=== PATIENT | female | born 1995 | race Caucasian/White ===

== ENCOUNTER 2019-06-27 19:06 | Inpatient (IN) | payer BC ==
[2019-06-27] MEDS ORDERED: Misoprostol 200 MCG TAB PR PRN (19:28)
[2019-06-27] MEDS ORDERED: Promethazine HCl 25 MG/ML VIAL IM PRN (19:28)
[2019-06-27] MEDS ORDERED: Ibuprofen 800 MG TAB PO PRN (19:28)
[2019-06-27] MEDS ORDERED: Lidocaine 1% (PF) 30 ML VIAL SC PRN (19:28)
[2019-06-27] MEDS ORDERED: NS / Oxytocin 40 units/1000ml 1,000 ML IV PRN (19:28)
[2019-06-27] MEDS ORDERED: Ondansetron PF 4 MG/2 ML Vial IVP PRN (19:28)
[2019-06-27] MEDS ORDERED: Carboprost 250 MCG/ML AMP IM PRN (19:28)
[2019-06-27] MEDS ORDERED: Diphenoxylate HCl/Atropine Tablet PO PRN ×2 (19:28)
[2019-06-27] MEDS ORDERED: HYDROcodone/Acetaminophen 5/325 mg Tablet PO PRN (19:28)
[2019-06-27] MEDS ORDERED: hydrALAZINE 20 MG/ML VIAL SLOW IVP PRN (19:28)
[2019-06-27] MEDS ORDERED: Zolpidem Tartrate 5 MG TAB PO PRN (19:28)
[2019-06-27 19:46] VITALS: BMI 35.9
[2019-06-27] MEDS: Lactated Ringer's 1,000 ML IV SCH (20:00)
[2019-06-27] MEDS ORDERED: Penicillin G Potassium 5 MILL.UNITS in Sodium Chloride 0.9% 100 ML IVPB SCH (20:00)
[2019-06-27 20:21] LABS: Hemoglobin 10.5 g/dL (12.0-16.0); Mean Corpuscular Hemoglobin 28.1 pg (27.0-31.0); Mean Platelet Volume 8.4 fL (7.4-10.4); Platelet Count 206 thou/uL (130-400); RBC Distribution Width 13.4 % (11.5-14.5); Red Blood Cell (RBC) Count 3.72 mill/uL (4.20-5.40); White Blood Cell (WBC) Count 16.1 thou/uL (4.8-10.8)
[2019-06-27] MEDS: Misoprostol 100 MCG TAB VAG SCH (20:21)
[2019-06-27 20:34] LABS: ALT (SGPT) 12 U/L (8-55); AST (SGOT) 14 U/L (5-34); Albumin 3.4 g/dL (3.5-5.0); Alkaline Phosphatase 152 U/L (40-110); Anion Gap 14 mmol/L (10-20); BUN (Urea Nitrogen) 13 mg/dL (7.0-18.7); Bilirubin, Total 0.2 mg/dL (0.2-1.2); Calc. Creatinine Clearance 177 mL/min (70-130); Calcium 8.9 mg/dL (7.8-10.44); Carbon Dioxide 22 mmol/L (22-29); Chloride 105 mmol/L (98-107); Estimated GFR-MDRD Greater than 90; Globulin 2.8 g/dL (2.4-3.5); Glucose 84 mg/dL (70-105); Protein, Total 6.2 g/dL (6.0-8.3); Sodium 137 mmol/L (136-145)
[2019-06-27 20:59] LABS: Syphilis Antibody Nonreactive (Nonreactive); Syphilis Antibody Index 0.03 S/CO (<1.00 Non-Reactive)
[2019-06-27 21:56] LABS: HBSAg Index 0.15 S/CO (0-0.99); Hep B Surf Ag Non-Reactive S/CO (NonReactive)
[2019-06-28] MEDS: Lactated Ringer's 1,000 ML IV SCH ×2 (02:00→09:16)
[2019-06-28] MEDS: NS w/ Oxytocin 10 units 500 ML IV SCH ×2 (02:10→04:00)
[2019-06-28] MEDS: Penicillin G 2.5 MILL.units 2.5 MILL.UNITS in Premix Bag 1 BAG IVPB SCH ×4 (02:10→11:51)
[2019-06-28] MEDS: Misoprostol 100 MCG TAB VAG SCH ×3 (02:10→18:09)
[2019-06-28] MEDS ORDERED: Butorphanol Tartrate 1 MG/ML VIAL ONE ×2 (08:48→08:55)
[2019-06-28] MEDS ORDERED: Butorphanol Tartrate 1 MG/ML VIAL SLOW IVP PRN (08:58)
[2019-06-28] MEDS ORDERED: Fentanyl 4 mcg/Bup 0.1% Cadd 100 ML ONE (10:16)
[2019-06-28] MEDS ORDERED: Acetaminophen 325 MG TAB PO PRN (10:52)
[2019-06-28] MEDS ORDERED: EPHEDRINE 25 MG/5 ML SYRINGE SLOW IVP PRN (10:52)
[2019-06-28] MEDS ORDERED: Promethazine HCl 25 MG/ML VIAL IM PRN (10:52)
[2019-06-28] MEDS ORDERED: Naloxone HCl 0.4 mg/ml Vial IVP PRN ×2 (10:52)
[2019-06-28] MEDS ORDERED: diphenhydrAMINE 50 MG/ML VIAL IVP PRN (10:52)
[2019-06-28] MEDS ORDERED: Ondansetron PF 4 MG/2 ML Vial IVP PRN (10:52)
[2019-06-28] MEDS ORDERED: Lactated Ringer's 500 ML IV PRN (10:52)
[2019-06-28] MEDS ORDERED: Fentanyl 4 mcg/Bupivacaine 0.1% Cassette 100 ML EPIDURAL SCH (11:00)
[2019-06-28] MEDS ORDERED: Communication Order-Pharmacy FS SCH (11:00)
[2019-06-28] MEDS: NS / Oxytocin 40 units/1000ml 1,000 ML IV SCH ×2 (13:45→15:47)
--- NOTE | 2019-06-28 14:03 | PDOC.OPDEL ---
OB Operative/Delivery Note Delivery Dr/Surgeon: Beena Pre-Delivery Diagnosis: medically indicated induction Procedure/Post Delivery Dx: spontaneous vaginal delivery Weeks gestation: 38 Anesthesia: epidural - Findings A Sex: female - 1 min: 8 - 5 min: 8 - Additional Findings/Plan Placenta delivered: spontaneous Repaired Obstetrical Laceration: 2nd degree (Baby had tight double nuchal cord. clamped and cut /reduced to deliver head.) Estimated blood loss: 250ml qbl Post delivery plan: routine recovery
[2019-06-28] MEDS ORDERED: Adacel (T-DAP) 0.5 ML SYRINGE IM ONE (14:04)
[2019-06-28] MEDS ORDERED: Benzocaine-Menthol 82.5 ML CAN TOP PRN (14:04)
[2019-06-28] MEDS ORDERED: Milk Of Magnesia 30 ML UDCUP PO PRN (14:04)
[2019-06-28] MEDS ORDERED: hydrALAZINE 20 MG/ML VIAL SLOW IVP PRN (14:04)
[2019-06-28] MEDS ORDERED: Preparation H Ointment 28 GM TUBE PR PRN (14:04)
[2019-06-28] MEDS ORDERED: Bisacodyl 10 MG SUPP PR PRN (14:04)
[2019-06-28] MEDS ORDERED: Ibuprofen 800 MG TAB PO SCH (16:00)
[2019-06-28] MEDS: Ferrous Sulfate 325 MG TAB PO SCH (18:09)
[2019-06-28] MEDS ORDERED: traMADol HCl 50 MG TAB PO PRN (18:19)
[2019-06-28] MEDS: Docusate Calcium (SURFAK) 240 MG CAP PO SCH (21:31)
[2019-06-28] MEDS: Ibuprofen 800 MG TAB PO SCH (21:31)
[2019-06-29] MEDS: Ibuprofen 800 MG TAB PO SCH ×2 (04:41→14:09)
--- NOTE | 2019-06-29 07:46 | PDOC.PP ---
Post Progress Note Post Day #: 1 Subjective: Working on breast feeding. Vital Signs (12 hours) Temp Pulse Resp BP 06/29/19 04:40 97.7 F 74 18 104/61 06/28/19 23:45 98.3 F 75 18 113/55 L Weight Weight 203 lb Result Diagrams: 06/27/19 20:08 06/27/19 20:09 Additional Labs: Post Labs Blood Type O POSITIVE 06/27/19 21:46 Hep Bs Antigen Non-Reactive S/CO (NonReactive) 06/27/19 20:08 - Assessment/Plan PPD#1. . Blood pressures normalized. Plan for d/c in AM.
[2019-06-29] MEDS: Ferrous Sulfate 325 MG TAB PO SCH ×2 (08:39→16:36)
[2019-06-29] MEDS: Docusate Calcium (SURFAK) 240 MG CAP PO SCH (08:39)
[2019-06-29 16:05] VITALS: BP 118/58; TEMP 98.8
== END 2019-06-29 18:18 | disposition home or self-care (01) | DRG 807 ==
LOC: L&D/OP 19:06 → L&D 19:07 → 3SW 06-28 17:36
PROVIDERS: ADMIT Obstetrics & Gynecology; ATTEND Obstetrics & Gynecology
PROC: 10907ZC Drainage of Amniotic Fluid, Therapeutic from Products of Conception, Via Natural or Artificial Opening (ICD-10-PCS; 2019-06-27)
PROC: 3E033VJ Introduction of Other Hormone into Peripheral Vein, Percutaneous Approach (ICD-10-PCS; 2019-06-27)
PROC: 3E0P7VZ Introduction of Hormone into Female Reproductive, Via Natural or Artificial Opening (ICD-10-PCS; 2019-06-27)
PROC: 10E0XZZ Delivery of Products of Conception, External Approach (ICD-10-PCS; principal; 2019-06-28)
PROC: 0KQM0ZZ Repair Perineum Muscle, Open Approach (ICD-10-PCS; 2019-06-28)
DX: O99.824 Streptococcus B carrier state complicating childbirth (principal); Z37.0 Single live birth; Z3A.38 38 weeks gestation of pregnancy; O69.1XX0 Labor and delivery complicated by cord around neck, with compression, not applicable or unspecified; O70.1 Second degree perineal laceration during delivery
CPT/HCPCS: 36415; 51702; 80053; 85027; 86780; 86850; 86900; 86901; 87340; 87635; J0595; J2540; J2590; J3490; U0003